=== PATIENT | female | born 1940 | race American Indian/Alaskan Native ===

== ENCOUNTER 2018-09-13 09:23 | Outpatient (CLI) | payer MEDICARE ==
--- NOTE | 2018-09-13 10:06 | Mammography Report ---
RIGHT DIGITAL BREAST TOMOSYNTHESIS (DBT) : 09/13/18 09:23:00 CLINICAL: This study is being done to evaluate asymmetries which persist on 2-D diagnostic views. COMPARISON:08/05/18 and 06/17/18 mammograms FINDINGS: No mass, suspicious architectural distortion or suspicious calcifications. Benign focal architectural distortion at a biopsy clip at 12 o'clock on the CC view with no suspicious finding on MLO, views. No findings to correlate with previously described asymmetries. IMPRESSION: No mammographic evidence of malignancy. BI-RADS CATEGORY: 2 - - Benign RECOMMENDATION: Routine mammographic screening in one year. COMMENT: Patient follow-up letters are generated by our [employer] application.
--- NOTE | 2018-09-16 13:13 | Mammography Report ---
RIGHT DIGITAL DIAGNOSTIC MAMMOGRAM AND RIGHT DIGITAL BREAST TOMOSYNTHESIS (DBT) : 09/13/18 09:23:00 CLINICAL: This study is being done to evaluate asymmetries which persist on 2-D diagnostic views. COMPARISON:08/05/18 and 06/17/18 mammograms FINDINGS: No mass, suspicious architectural distortion or suspicious calcifications. Benign focal architectural distortion at a biopsy clip at 12 o'clock on the CC view with no suspicious finding on MLO, views. No findings to correlate with previously described asymmetries. IMPRESSION: No mammographic evidence of malignancy. BI-RADS CATEGORY: 2 - - Benign RECOMMENDATION: Routine mammographic screening in one year. COMMENT: Patient follow-up letters are generated by our [employer] application.
== END 2018-09-13 09:24 | disposition home or self-care (01) ==
LOC: SPVWC 09:23
PROVIDERS: ATTEND Surgery
DX: R92.8 Other abnormal and inconclusive findings on diagnostic imaging of breast (principal)
CPT/HCPCS: 77065; G0279